=== PATIENT | female | born 1945 | race Caucasian/White ===

== ENCOUNTER 2018-02-14 13:52 | Day surgery (SDC) | payer MEDICARE, BC ==
[2018-02-14] MEDS ORDERED: CEFAZOLIN 2 GM/50 ML (PMX) 50 ML IVPB (15:00)
[2018-02-14] MEDS ORDERED: LACTATED RINGER'S 1,000 ML IV* (15:00)
[2018-02-14] MEDS ORDERED: MIDAZOLAM 1 MG/ML 2 ML INJ (17:51)
[2018-02-14] MEDS ORDERED: KETAMINE (100 MG/ML) 5 ML VIAL (17:51)
[2018-02-14] MEDS ORDERED: FENTAnyl 50 MCG/ML VIAL (17:51)
[2018-02-14] MEDS ORDERED: LIDOCAINE 1% (MDV) 20 ML INJ (17:57)
[2018-02-14] MEDS ORDERED: PROPOFOL 20 ML (17:57)
[2018-02-14] MEDS ORDERED: KETOROLAC 30 MG INJ (18:00)
[2018-02-14] MEDS ORDERED: CEFAZOLIN 1 GM INJ (18:01)
[2018-02-14] MEDS: BUPIVACAINE 0.5% (SDV) 30 ML INJ ×2 (18:07→18:56)
[2018-02-14] MEDS ORDERED: LABETALOL HCL 20MG INJ IV (19:30)
[2018-02-14] MEDS ORDERED: HYDROmorphONE 1 MG/5 ML IV SYRINGE IV ×2 (19:30)
[2018-02-14] MEDS ORDERED: HYDROCODONE/APAP (10/325) TAB PO (19:30)
[2018-02-14] MEDS ORDERED: ONDANSETRON (ODT) 4 MG TAB ODT (19:30)
[2018-02-14] MEDS ORDERED: ONDANSETRON 4 MG INJ IV (19:30)
[2018-02-14] MEDS ORDERED: hydrALAzine 20 MG INJ IV (19:30)
== END 2018-02-18 09:58 | disposition home or self-care (01) ==
LOC: SDS 13:52
DX: M21.612 Bunion of left foot (principal); I10 Essential (primary) hypertension; J45.909 Unspecified asthma, uncomplicated
CPT/HCPCS: 28296; 73630-LT; 88304